=== PATIENT | female | born 1965 | race Two or more races ===

== ENCOUNTER 2023-09-18 15:49 | Emergency (ER) | payer MEDICAID ==
[~2023-09-18] VITALS: Ht 154.9 cm; Wt 86.2 kg
[2023-09-18] MEDS ORDERED: IV NORMAL SALINE 1000 ML BAG IV ONE (16:30)
[2023-09-18] MEDS ORDERED: ONDANSETRON 4 MG/2 ML VIAL IV ONE (16:30)
[2023-09-18] MEDS ORDERED: MORPHINE SULFATE 4 MG/1 ML DISP.SYRIN IV ONE (16:30)
[2023-09-18] MEDS ORDERED: ONDANSETRON 4 MG/2 ML VIAL ONE (16:33)
[2023-09-18] MEDS ORDERED: MORPHINE SULFATE 4 MG/1 ML DISP.SYRIN ONE (16:34)
[2023-09-18 16:48] LABS: BASOPHILS # (AUTO) 0.1 K/UL (0.0-0.2); BASOPHILS % (AUTO) 0.8 % (0.0-2.0); EOSINOPHILS # (AUTO) 0.1 K/uL (0.0-0.7); EOSINOPHILS % (AUTO) 0.7 % (0.0-7.0); HEMATOCRIT 39.4 % (31.2-41.9); HEMOGLOBIN 13.4 g/dL (10.9-14.3); LYMPHOCYTES # (AUTO) 2.5 K/uL (0.8-4.8); LYMPHOCYTES % (AUTO) 22.2 % (20.5-51.5); MEAN CORPUSCULAR HEMOGLOBIN 30.1 uug (24.7-32.8); MEAN CORPUSCULAR HGB CONC 34 g/dL (32.3-35.6); MEAN CORPUSCULAR VOLUME 88.3 fL (75.5-95.3); MONOCYTES # (AUTO) 0.3 K/uL (0.1-1.30); MONOCYTES % (AUTO) 2.8 % (0.0-11.0); NEUTROPHILS # (AUTO) 8.2 K/uL (1.8-8.9); NEUTROPHILS % (AUTO) 73.5 % (38.5-71.5); PLATELET COUNT (AUTO) 255 K/uL (179-408); RED BLOOD CELL COUNT(AUTO) 4.46 MIL/uL (3.63-4.92); WHITE BLOOD COUNT (AUTO) 11.1 K/uL (3.8-11.8)
[2023-09-18 16:49] LABS: DIFFERENTIAL COMMENT 1
[2023-09-18 16:58] LABS: *BILIRUBIN,URIN NEGATIVE (NEGATIVE); *BLOOD, URINE NEGATIVE (NEGATIVE); *CLARITY,URINE CLEAR (CLEAR); *COLOR,URINE YELLOW (YELLOW); *KETONES,URINE NEGATIVE (NEGATIVE); *PROTEIN,URINE NEGATIVE (NEGATIVE); *UROBILINOGEN,URINE 0.2 E.U./dl (NORMAL); LEUKOCYTE ESTERASE ,URINE NEGATIVE (NEGATIVE); NITRITE, URINE NEGATIVE (NEGATIVE); UGLUCOSE NEGATIVE (NEGATIVE)
[2023-09-18 16:58] LABS: CALCIUM 9.3 mg/dL (8.5-10.1); CARBON DIOXIDE 24 mmol/L (21-32); CHLORIDE 98 mmol/L (98-107); CREATININE 0.9 mg/dL (0.6-1.3); GLUCOSE 119 mg/dL (74-106); POTASSIUM 3.5 mmol/L (3.5-5.1); SODIUM SERUM 135 mmol/L (136-145); UREA NITROGEN, BLOOD 12 mg/dL (7-18)
[2023-09-18 17:07] LABS: ALANINE AMINOTRANSFERASE 31 U/L (14-59); ALBUMIN 3.7 g/dL (3.4-5.0); ALKALINE PHOSPHATASE 133 U/L (50-136); ASPARTATE AMINOTRANSFERASE 27 U/L (15-37); BILIRUBIN,DIRECT < 0.1 mg/dL (0.0-0.2); BILIRUBIN,TOTAL 0.3 mg/dL (0.2-1.0); LIPASE 44 U/L (16-77)
[2023-09-18] MEDS ORDERED: KETOROLAC TROMETHAMINE 30 MG INJ IVP ONE (17:15)
[2023-09-18] MEDS ORDERED: SWABABLE VALVE TRANSFER SET EA MC ONE (17:22)
[2023-09-18] MEDS ORDERED: IOHEXOL 300MG/ML 100 ML INFUS..BTL ONE (17:22)
[2023-09-18] MEDS ORDERED: IV NORMAL SALINE 250 ML IV ONE (17:22)
[2023-09-18] MEDS ORDERED: KETOROLAC TROMETHAMINE 30 MG INJ ONE (17:40)
[2023-09-18] MEDS ORDERED: FAMOTIDINE. 20 MG/2 ML VIAL IV ONE ×2 (18:45→18:53)
[2023-09-18] MEDS ORDERED: HYDR-3980 PO ×2 (19:23→19:46)
[2023-09-18] MEDS ORDERED: ONDA4TAB5 PO ×2 (19:23→19:46)
[2023-09-18 19:33] VITALS: BP 125/77; O2SAT 97
== END 2023-09-18 19:34 | disposition home or self-care (01) ==
LOC: ER 15:52
DX: R10.9 Unspecified abdominal pain (principal); H53.8 Other visual disturbances; G89.29 Other chronic pain; M54.50 Low back pain, unspecified; R07.89 Other chest pain; Z90.710 Acquired absence of both cervix and uterus
CPT/HCPCS: 99285; 71260; 96374; 96375; 71045; 96361; 80076; 80048; 81003; 83690; 85025; 84484; 36415; 93005; 74177; J3490; J1885; J2405; Q9967; J2270; J7040; A4606; A4663